=== PATIENT | female | born 1985 | race Caucasian/White ===

== ENCOUNTER 2018-01-16 16:11 | Outpatient (REF) | payer OTHER, SELFPAY | END 2018-01-16 16:31 | LOC: NCHCN 16:11 | PROVIDERS: Visit Provider Family Medicine | DX: N39.0 Urinary tract infection, site not specified (principal) | CPT/HCPCS: 87086 ==

== ENCOUNTER 2018-06-20 17:10 | Outpatient (REF) | payer OTHER, SELFPAY ==
[2018-06-23 13:42] LABS: Chlamydia Result Negative; GC Result Negative
== END 2018-06-20 17:30 ==
LOC: LBN 17:10
PROVIDERS: Visit Provider Nurse Practitioner Women's Health
DX: Z11.3 Encounter for screening for infections with a predominantly sexual mode of transmission (principal)
CPT/HCPCS: 87491; 87591

== ENCOUNTER 2019-01-29 17:21 | Outpatient (REF) | payer OTHER, SELFPAY | END 2019-01-29 17:41 | LOC: NCHCO 17:21 | PROVIDERS: Visit Provider Family Medicine | DX: N76.0 Acute vaginitis (principal) | CPT/HCPCS: 87480; 87510; 87660 ==

== ENCOUNTER 2019-11-03 16:57 | Outpatient (REF) | payer OTHER, SELFPAY ==
--- NOTE | 2019-11-03 14:30 | PAPFT_PTH ---
PATIENT: Heidy Pineda LOC: [facility] U#:[id number] AGE/SX: 34/F ROOM: RE11/03/[address]: Natalia Shahid NP : 1985 BED: DIS: 11/03/2019 SPEC #: [id number] RECD: 11/03/19 17:36 STATUS: ANIYA REJerica #: [id number] LEXY: 11/03/19 14:[address]: Natalia Shahid NP DEPT: [facility] Cytology RECD BY: Celsa Solomon ENTERED: 11/03/19 17:37 SP TYPE: PAPFT OTHR DR: Erin Tomlin Tissues: 1 - CX/ENDOCX FOR PAP SMEARS Procedures: PAP THIN PREP/[facility] Screening HPV DNA PROBE Comments: [id number]
== END 2019-11-03 17:17 ==
LOC: LBN 16:57
PROVIDERS: Visit Provider Nurse Practitioner Women's Health
DX: Z12.4 Encounter for screening for malignant neoplasm of cervix (principal); Z11.51 Encounter for screening for human papillomavirus (HPV)
CPT/HCPCS: 88142; 87624

== ENCOUNTER 2019-11-06 02:40 | Outpatient (CLI) | payer OTHER, SELFPAY ==
--- NOTE | 2019-11-06 06:45 | DI.US_ITS ---
EXAM: US PELVIS TRANSVAGINAL CLINICAL HISTORY: R sided pelvic pain, R10.2 TECHNIQUE: Transabdominal and transvaginal imaging was performed using standard protocol. COMPARISON: CT RENAL COLIC WO CONTRAST from 04/09/2016 US US CENTER OB from 09/01/2017 FINDINGS: KIDNEYS: Kidneys are symmetric in size. No evidence of renal calculi. No evidence of hydronephrosis. No renal mass or cyst identified. UTERUS: Anteverted. 7.1 x 3.7 x 5.0 cm. Endometrium: 5 millimeters Myometrium: Few scattered calcifications in the fundal region. No visible fibroid. Cervix: Unremarkable. OVARIES: Right: Cyst or mass: None. Left: Cyst or mass: None. DOPPLER: Color: Symmetric and uniform flow to both ovaries. No hyperemia. Duplex: Normal ovarian arterial waveforms visualized. CUL-DE-SAC: Free fluid: None. IMPRESSION: 1. Normal-appearing uterus with endometrial stripe within normal limits. 2. Unremarkable bilateral ovaries. DATA REPOSITORY:
== END 2019-11-06 03:00 ==
PROVIDERS: Visit Provider Nurse Practitioner Women's Health
DX: R10.2 Pelvic and perineal pain (principal)
CPT/HCPCS: 76830; 76856

== ENCOUNTER 2019-11-06 03:24 | Outpatient (CLI) | payer OTHER, SELFPAY ==
[2019-11-06 09:33] LABS: TSH (W/Ref FT4) 1.49 uIU/mL (0.36-3.74)
== END 2019-11-06 03:44 ==
PROVIDERS: Visit Provider Nurse Practitioner Women's Health
DX: R63.5 Abnormal weight gain (principal)
CPT/HCPCS: 36415; 84443

== ENCOUNTER 2021-06-06 15:25 | Outpatient (REF) | payer OTHER, SELFPAY ==
[2021-06-08 13:31] LABS: Chlamydia Result Negative (Negative); GC Result Negative (Negative)
== END 2021-06-06 15:26 | disposition home or self-care (01) ==
LOC: LBN 15:25
PROVIDERS: Visit Provider Nurse Practitioner Women's Health
DX: Z11.3 Encounter for screening for infections with a predominantly sexual mode of transmission (principal)
CPT/HCPCS: 87491; 87591

== ENCOUNTER 2021-07-11 21:14 | Outpatient (REF) | payer OTHER, SELFPAY ==
[2021-07-11 14:29] LABS: Bilirubin Negative (Negative); Blood Negative (Negative); Clarity Clear (Clear); Glucose Negative (Negative); Ketones Negative (Negative); Leukocyte Esterase Negative (Negative); Nitrite Negative (Negative); Urobilinogen 0.2 EU/dL (Up TO 0.2); pH 6.5 (5-8)
== END 2021-07-11 21:15 | disposition home or self-care (01) ==
LOC: NCHCN 21:14
PROVIDERS: Visit Provider Family Medicine
DX: R10.30 Lower abdominal pain, unspecified (principal)
CPT/HCPCS: 81003; 87086

== ENCOUNTER 2022-08-02 17:55 | Emergency (ER) | payer OTHER, SELFPAY ==
[2022-08-02 17:59] VITALS: BP 109/67; PULSE 75; RESP 14; TEMP 36.6; O2SAT 98
[2022-08-02 18:23] LABS: Bilirubin Negative (Negative); Blood Moderate (Negative); Clarity Clear (Clear); Glucose Negative (Negative); Ketones Trace mg/dL (Negative); Leukocyte Esterase Trace (Negative); Nitrite Negative (Negative); Specific Gravity 1.025 (1.005-1.025)
[2022-08-02 18:26] LABS: Bacteria Moderate HPF (Negative); C & S Indicated? Yes; Casts Negative LPF (Negative); Crystals Negative HPF (Negative); Epithelial Cells Few HPF (Negative); Mucus Negative (Negative); WBC >50 HPF (0-5)
--- NOTE | 2022-08-02 19:00 | DI.CT_ITS ---
Exam(s) CT RENAL COLIC WO EXAM: CT RENAL COLIC WO CLINICAL HISTORY: left flank. TECHNIQUE: Imaging Protocol: Axial computed tomography images with coronal and sagittal reformatted images were created and reviewed. COMPARISON: CT RENAL COLIC WO CONTRAST from 04/09/2016 FINDINGS: ABDOMEN: Lung Bases: There are atelectatic changes seen in the lung bases. Liver: Normal density. No measurable mass. Gallbladder and biliary tract: No radiodense calculus or biliary ductal dilation. Pancreas: Normal density, no abnormal calcifications or inflammatory process. Spleen: Normal. Kidneys: Normal size, contour and axis.There is mild thickening of the wall of the left renal pelvis and ureter. There is mild dilatation of the left ureter with no stones seen. There is mild strandin g around the structures. No masses seen. No nephrolithiasis. Adrenal glands: No mass is seen. Lymph nodes: Within normal limits. Abdominal Aorta: Abdominal portion non-dilated. PELVIS: Bladder:There is mild diffuse thickening of the wall of the urinary bladder. The bladder is underdis tended. Bowel: No obstruction or bowel wall thickening. There is no evidence of appendicitis. Peritoneal cavity: No ascites, collection or mesenteric inflammatory response. No free air. Reproductive organs: There is an IUD in place. Bones: Within normal limits. Soft Tissues: There is a midline fat containing anterior abdominal wall hernia just superior to the u mbilicus. IMPRESSION: 1. No evidence of nephrolithiasis or ureteral stone. 2. There is suggestion of mild thickening of the wall of the left renal pelvis ureter and urinary judah dder. This can be seen in the setting of urinary tract infection with cystitis. Please correlate cl inically. RADIATION DOSE DELIVERED: 1,017.81mGy.cm Total DLP DATA REPOSITORY: All CT scans at this facility are submitted to the National Radiology Data Registry (NRDR) Dose Index Registry (DIR) with the [employer] (ACR). RADIATION OPTIMIZATION: All CT scans at this facility use at least one of these dose optimization te chniques: automated exposure control; mA and/or kV adjustment per patient size (includes targeted exa ms where dose is matched to clinical indication); or iterative reconstruction.
--- NOTE | 2022-08-02 19:56 | DI.VRAD_ITS ---
PROCEDURE INFORMATION: Exam: CT Abdomen And Pelvis Without Contrast Exam date and time: 08/02/2022 7:17 PM Age: 36 years old Clinical indication: Abdominal pain; Patient HX: Left flank pain TECHNIQUE: Imaging protocol: Computed tomography of the abdomen and pelvis without contrast. COMPARISON: CT RENAL COLIC WO CONTRAST 04/09/2016 2:19 PM FINDINGS: Lungs: There are regions of mild scarring/subsegmental atelectasis within the lung bases. Liver: Normal. No mass. Gallbladder and bile ducts: Normal. No calcified stones. No ductal dilation. Pancreas: Normal. No ductal dilation. Spleen: Normal. No splenomegaly. Adrenal glands: Normal. No mass. Kidneys and ureters: No renal or ureteral stones are identified. There is no hydronephrosis or hydroureter. Findings suggest new mild urothelial thickening involving the left renal pelvis as well as likely the left ureter, as well as new mild fluid stranding around these structures, which can be seen in the setting of urinary tract infection. Stomach and bowel: Unremarkable. No obstruction. No mucosal thickening. Appendix: No evidence of appendicitis. Intraperitoneal space: There is no free intraperitoneal air. There is no evidence of free intraperitoneal fluid. Vasculature: Unremarkable. No abdominal aortic aneurysm. Lymph nodes: Unremarkable. No enlarged lymph nodes. Urinary bladder: No bladder stones are identified. The bladder is not well evaluated, as it is not distended, but findings suggest new mild diffuse bladder wall thickening. There also appears to be new mild fat stranding around the bladder, suggesting cystitis. Reproductive: There is an IUD within the uterus in the fundus and upper body region. The uterus is partially retroverted. Bones/joints: There is mild facet arthrosis of the lower lumbar spine. There is minimal anterolisthesis of L5 on S1, as on prior study, likely degenerative. No acute fractures are identified. There Soft tissues: There is a 2.1 x 2.9 cm fat containing midline abdominal wall hernia just superior to the umbilicus, without change from prior study. IMPRESSION: 1. No urinary tract stones or evidence of urinary tract obstruction. 2. Findings suggest new mild urothelial thickening of the left renal pelvis, left ureter and bladder, which can be seen in the setting urinary tract infection with cystitis. Recommend clinical correlation. 3. Stable small fat containing anterior midline abdominal wall hernia. Dictated and Authenticated by: Raymundo Padron MD. Ordering:YOLANDA Mayer MD
--- NOTE | 2022-08-02 20:15 | ED.GENADUL_ITS ---
Discharge Plan Disposition Patient Disposition: Home Condition: Stable Discharge Details Clinical Impression: UTI (urinary tract infection) Primary Care Provider: Kavitha Muir ED Provider: Leyla Mayberry Home Meds and New Rx's Prescriptions: New phenazopyridine [Pyridium] 200 mg tablet 200 mg PO TID PRNQty: 6 0RF levofloxacin 750 mg tablet 750 mg PO DAILY Qty: 6 0RF Continued Mirena 20 mcg/24 hours (7 yrs) 52 mg intrauterine device 1 insert intrauterine ONCE Qty: 1 0RF metronidazole [Metrogel Vaginal] 0.75 % gel 1 appful vaginal BID 5 Days Qty: 70 1RF valacyclovir 1 gram tablet See Rx Instructions .ROUTE .COMPLEX Qty: 20 5RF Dose Instruction: TAKE ONE TABLET BY MOUTH EVERY DAY Rx Instructions: TAKE ONE TABLET BY MOUTH EVERY DAY Discharge Instructions Instructions: Urinary Tract Infection in Women (ED) Additional Instructions: take antibiotics as directed even if you feel better use pyridium as directed for needed for frequency, urgency or burning drink at least 6-8 glasses of water daily to stay well hydrated Referrals: Kavitha Muir [Primary Care Provider] - Discharge Data Discharge Date/Time-TO BE ENTERED AT DEPARTURE: 08/02/22 20:44 Medical Decision Making <Leyla Mayberry NP - Last Filed: 08/03/22 17:21> 36-year-old female patient history of kidney stones who presents with left flank pain saw her PCP has been taking Macrobid symptoms not improving urine culture is growing E. coli but sensitivities are not yet available. She has been afebrile able to tolerate good p.o. hemodynamically stable and nontoxic- appearing. Urine is rechecked and is still with evidence of ongoing infection despite 3 days of antibiotic treatment. As she is stable I think I will wait for sensitivities which should be back within the next 24 hours before changing her antibiotic as did not change to a potentially resistant antibiotic. She is in agreement with this plan I did discuss for her to return immediately should she develop chills inability to keep oral down worsening symptoms or concerns. She will be scheduled for outpatient ultrasound in the a.m. as it is not available at this time. She declined CAT scan to evaluate for renal stone <Viri Moncada DO - Last Filed: 08/03/22 22:51> 36-year-old female patient history of kidney stones who presents with left flank pain saw her PCP has been taking Macrobid symptoms not improving urine culture is growing E. coli but sensitivities are not yet available. She has been afebrile able to tolerate good p.o. hemodynamically stable and nontoxic- appearing. Urine is rechecked and is still with evidence of ongoing infection despite 3 days of antibiotic treatment. As she is stable I think I will wait for sensitivities which should be back within the next 24 hours before changing her antibiotic as did not change to a potentially resistant antibiotic. She is in agreement with this plan I did discuss for her to return immediately should she develop chills inability to keep oral down worsening symptoms or concerns. She will be scheduled for outpatient ultrasound in the a.m. as it is not available at this time. She declined CAT scan to evaluate for renal stone. Dr. Moncada Patient not seen or examined by me but I was available for consult if needed. HPI <Leyla Mayberry NP - Last Filed: 08/03/22 17:21> General Mode of arrival: ambulatory . Date/Time Provider Initiated Documentation: 08/02/22 17:57 . Limitations to Documentation: no limitations . Information obtained by: patient . Related Data Home Medications Medication Instructions Recorded Confirmed levonorgestrel 21 mcg/24 hours (8 1 insert intrauterine ONCE #1 ea 06/06/21 08/29/21 yrs) 52 mg intrauterine device (Mirena) metronidazole 0.75 % (37.5 mg/5 1 appful vaginal BID 5 days #70 07/14/21 07/14/21 gram) vaginal gel (Metrogel grams Vaginal) valacyclovir 1 gram tablet See Rx Instructions .Route 10/26/21 .COMPLEX #20 tabs levofloxacin 750 mg tablet 750 mg PO DAILY #6 tabs 08/02/22 phenazopyridine 200 mg tablet 200 mg PO TID PRN #6 tabs 08/02/22 (Pyridium) Previous Rx's Medication Instructions Recorded levonorgestrel 21 mcg/24 hours (8 1 insert intrauterine ONCE #1 ea 06/06/21 yrs) 52 mg intrauterine device (Mirena) metronidazole 0.75 % (37.5 mg/5 1 appful vaginal BID 5 days #70 07/14/21 gram) vaginal gel (Metrogel grams Vaginal) valacyclovir 1 gram tablet See Rx Instructions .Route 10/26/21 .COMPLEX #20 tabs levofloxacin 750 mg tablet 750 mg PO DAILY #6 tabs 08/02/22 phenazopyridine 200 mg tablet 200 mg PO TID PRN #6 tabs 08/02/22 (Pyridium) Allergies Allergy/AdvReac Type Severity Reaction Status Date / Time No Known Allergies Allergy Verified 07/14/21 14:47 General Stated Complaint: Urinary TRISTEN: 3 Review of Systems <Leyla Mayberry NP - Last Filed: 08/03/22 17:21> All systems reviewed & are unremarkable except as noted in HPI and below PFSH <Leyla Mayberry NP - Last Filed: 08/03/22 17:21> All Active Problems (Updated 08/02/22 @ 20:16 by Leyla Mayberry NP) UTI (urinary tract infection) (Acute) Vaginal discharge (Acute) IUD surveillance (Acute 06/06/21) Mirena Rhytides (Acute) Anal fissure (Acute) causing rectal pain. Rx with Nitroglycerine cream, MiraLax. is her bundle sorter. Colon polyp (Acute) 03/2018. Benign hyperplastic polyp repeat colonoscopy recommended in 2020. Dr. Prieto.` Surgical History Cervical Procedure 2013 LEEP. SUZY 3 with clear margins. Social History Smoking/Tobacco Use Status: Current-Occasional Smoking risk assessment performed?: Yes Do you feel safe in your relationship?: Yes Female Reproductive History Menstrual control method: progestin IUCD History History 1 Para 1 Hx # Term Pregnancies Multiple births Hx # Pregnancies Ectopic pregnancies AB induced Hx Number of Living Children AB spontaneous Exam <Leyla Mayberry NP - Last Filed: 08/03/22 17:21> Const General: cooperative, healthy appearing and comfortable Nutritional Appearance: average body habitus Orientation: alert, awake and oriented x3 HENMT Head: normal to inspection and normocephalic Mouth: oral mucosae normal Chest Chest: normal inspection of the chest Resp Effort & Inspection: normal respiratory effort Cardio Rate: regular rate Rhythm: regular rhythm GI Inspection: normal to inspection Palpation: soft Skin General skin exam: no rashes or lesions noted Neuro General: patient alert, patient awake and patient oriented x3 Cognition: normal cognition Speech: speech normal Extrem General: normal to inspection, full ROM and no pedal edema Course <Leyla Mayberry NP - Last Filed: 08/03/22 17:21> Vital Signs Vital signs: Vital Signs Temperature 36.6 C 08/02/22 17:59 Pulse 75 08/02/22 17:59 Respiratory Rate 14 08/02/22 17:59 Blood Pressure 109/67 08/02/22 17:59 Pulse Oximetry 98 08/02/22 17:59 Temperature 36.6 C 08/02/22 17:59 Temperature Source Tympanic 08/02/22 17:59 Pulse 75 08/02/22 17:59 Respiratory Rate 14 08/02/22 17:59 Respiratory Effort Normal 08/02/22 18:18 Blood Pressure 109/67 08/02/22 17:59 Blood Pressure Position Sitting 08/02/22 17:59 Pulse Oximetry 98 08/02/22 17:59 Oxygen Delivery Method Room Air 08/02/22 17:59 Oxygen Flow Rate 0 08/02/22 17:59 Pain Level 2 08/02/22 17:59 Lab/Test Results Lab/Test Results: 08/02/22 18:03 Urine - Reflex from Ua Urine Culture - Pending Laboratory Tests Range/Units 08/02/22 18:03 Urine Color (Yellow) Yellow Urine Clarity (Clear) Clear Urine pH (5-8) 7.0 Ur Specific [place] (1.005-1.025) 1.025 Urine Protein (Negative) mg/dL >=300 H Urine Ketones (Negative) mg/dL Trace H Urine Blood (Negative) Moderate H Urine Nitrite (Negative) Negative Urine Bilirubin (Negative) Negative Urine Urobilinogen (Up to 0.2) mg/dL 1.0 H Ur Leukocyte Esterase (Negative) Trace H Urine RBC (0-2) HPF 10-20 H Urine WBC (0-5) HPF >50 H Ur Epithelial Cells (Negative) HPF Few Urine Crystals (Negative) HPF Negative Urine Bacteria (Negative) HPF Moderate Urine Casts (Negative) LPF Negative Urine Mucus (Negative) Negative Ur Culture Indicated? Yes Urine Glucose (Negative) mg/dL Negative
[2022-08-02 20:43] VITALS: PULSE 75; RESP 18; O2SAT 98
[2022-08-02] MEDS: Phenazopyridine 100 MG TAB, 2 TABS/BTL PO (20:49)
[2022-08-02] MEDS: levoFLOXacin 500 MG, levoFLOXacin 250 MG 750 MG PO (20:49)
== END 2022-08-02 20:44 | disposition home or self-care (01) ==
PROVIDERS: Emergency Provider Nurse Practitioner Acute Care; PCP Family Medicine
DX: N39.0 Urinary tract infection, site not specified (principal); Z87.442 Personal history of urinary calculi
CPT/HCPCS: 87077; 99284; 74176; 81003; 81015; 87086; 87186

== ENCOUNTER 2022-10-04 15:05 | Outpatient (REF) | payer OTHER, SELFPAY | END 2022-10-04 15:06 | disposition home or self-care (01) | LOC: NCHCN 15:05 | PROVIDERS: PCP Family Medicine; Visit Provider Family Medicine | DX: R30.0 Dysuria (principal) | CPT/HCPCS: 87086 ==

== ENCOUNTER 2024-07-24 13:59 | Outpatient (REF) | payer OTHER, SELFPAY ==
[2024-07-24 15:15] LABS: ALT 21 U/L (14-59); AST 16 U/L (15-37); Albumin 4.4 g/dL (3.4-5.0); Alkaline Phosphatase 56 U/L (46-116); BUN 13 mg/dL (7-18); Bilirubin, Total 0.3 mg/dL (0.2-1.0); Calcium 9.5 mg/dL (8.5-10.1); Chloride 104 mmol/L (98-107); Estimated GFR 73.95 (mL/min/1.73m2); Glucose 81 mg/dL (74-106); Potassium 4.3 mmol/L (3.5-5.1); Sodium 140 mmol/L (136-145); Total Protein 7.4 g/dL (6.4-8.2)
== END 2024-07-24 14:00 | disposition home or self-care (01) ==
LOC: NCHCN 13:59
PROVIDERS: PCP Family Medicine; Visit Provider Family Medicine
DX: E66.3 Overweight (principal)
CPT/HCPCS: 80053